=== PATIENT | male | born 2000 | race African-American/Black ===

== ENCOUNTER 2023-12-16 02:26 | Emergency (ER) | payer OTHER ==
[2023-12-16 02:33] VITALS: BMI 26.2
[2023-12-16 02:41] VITALS: BP 134/62; PULSE 75; RESP 18; TEMP 98.5
== END 2023-12-16 04:33 | disposition home or self-care (01) ==
LOC: FER 02:26
DX: S61.012A Laceration without foreign body of left thumb without damage to nail, initial encounter (principal); S61.211A Laceration without foreign body of left index finger without damage to nail, initial encounter; S61.213A Laceration without foreign body of left middle finger without damage to nail, initial encounter; W25.XXXA Contact with sharp glass, initial encounter; Y35.811A Legal intervention involving manhandling, law enforcement official injured, initial encounter
CPT/HCPCS: 73140-TC-LT-FY; 99283-25